=== PATIENT | male | born 1985 | race Two or more races ===

== ENCOUNTER 2018-03-29 23:34 | Emergency (ER) | payer OTHER ==
[~2018-03-29] VITALS: Ht 165.1 cm; Wt 121.1 kg
[~2018-03-29 23:34] MED LIST: AMOXICILLIN/CLAV 875-125MG TABLET PO ONE
[2018-03-29 23:35] VITALS: BP 169/85
[2018-03-29] MEDS ORDERED: AMOXICILLIN/CLAV 875-125MG TABLET ONE (23:58)
[2018-03-29] MEDS ORDERED: DIPH,PERTUSS(ACELL),TET VAC/PF 0.5 ML IM-VACC ONE (23:59)
[2018-03-29] MEDS ORDERED: ACETAMINOPHEN 500 MG TABLET ONE (23:59)
[2018-03-30] MEDS ORDERED: DIPH,PERTUSS(ACELL),TET VAC/PF 0.5 ML IM-VACC ONE
[2018-03-30] MEDS ORDERED: ACETAMINOPHEN 500 MG TABLET PO ONE
[2018-03-30] MEDS ORDERED: BACITRACIN ZINC OINT 500U/GM, 0.9 GM ONE (00:14)
== END 2018-03-30 01:10 | disposition home or self-care (01) ==
LOC: ED 03-30 00:30
DX: S40.872A Other superficial bite of left upper arm, initial encounter (principal); W50.3XXA Accidental bite by another person, initial encounter; Y93.89 Activity, other specified; Y92.69 Other specified industrial and construction area as the place of occurrence of the external cause; Y99.8 Other external cause status
CPT/HCPCS: 90471; 90715; 99283

== ENCOUNTER 2020-04-30 12:43 | Emergency (ER) | payer SELFPAY ==
[~2020-04-30] VITALS: Ht 165.1 cm; Wt 111.9 kg
--- NOTE | 2020-04-30 14:13 | NUR ---
ASSUMED CARE OF PATIENT. PATIENT C/O A COUGH AND CONGESTION. PT WAS TOLD TO COME TO THE ER BY HIS WORK TO GET A COVID TEST. VS STABLE. NO ACUTE DISTRESS NOTED. CALL LIGHT IN PLACE. WILL CONTINUE TO MONITOR.
[2020-04-30 14:52] VITALS: BP 158/82
== END 2020-04-30 15:06 | disposition home or self-care (01) ==
LOC: ED 14:25
DX: B34.9 Viral infection, unspecified (principal); Z20.828 Contact with and (suspected) exposure to other viral communicable diseases
CPT/HCPCS: 36415; 87635; 99283